=== PATIENT | male | born 1985 | race American Indian/Alaskan Native ===

== ENCOUNTER 2016-09-26 02:25 | Emergency (ER) | payer OTHER ==
[2016-09-26] MEDS ORDERED: NORCO 5/325 PO ONE (07:42)
[2016-09-26] MEDS ORDERED: PROVENTIL IH ONE (07:42)
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
--- NOTE | 2016-09-26 08:45 | XRay Report ---
ROUTINE CHEST, TWO VIEWS: HISTORY: Cough, wheezing. The trachea, heart, mediastinal contour, lung tellez and bony thorax are unremarkable. IMPRESSION: Unremarkable chest x-ray.
[2016-09-26 09:30] VITALS: BP 136/91
== END 2016-09-26 09:28 | disposition home or self-care (01) ==
LOC: ED 02:25
DX: J06.9 Acute upper respiratory infection, unspecified (principal); F17.200 Nicotine dependence, unspecified, uncomplicated; Z98.890 Other specified postprocedural states
CPT/HCPCS: 71020; 94640; 99283

== ENCOUNTER 2017-04-21 22:38 | Emergency (ER) | payer SELFPAY ==
[2017-04-22 01:13] LABS: Basophils % (Auto) 0.6 % (0.0-1.8); Eosinophils % (Auto) 4.3 % (0.0-4.3); Hematocrit 48.7 % (35.5-45.6); Hemoglobin 16.4 gm/dl (11.8-15.2); Mean Corpuscular HGB Conc 34 % (32-34); Mean Corpuscular Hemoglobin 31 pg (28-32); Mean Corpuscular Volume 93 fl (84-94); Platelet Count 264 K/mm3 (140-440); Red Blood Count 5.24 M/mm3 (3.65-5.03); White Blood Count 4.9 K/mm3 (4.5-11.0)
[2017-04-22 01:21] LABS: Alanine Aminotransferase 44 units/L (7-56); Albumin 4.4 g/dL (3.9-5); Albumin/Globulin Ratio 1.3 %; Alkaline Phosphatase 75 units/L (35-129); Anion Gap 21 mmol/L; Blood Urea Nitrogen 12 mg/dL (9-20); Carbon Dioxide 21 mmol/L (22-30); Chloride 102.1 mmol/L (98-107); Glucose 128 mg/dL (75-100); Lipase 110 units/L (13-60); Potassium 3.9 mmol/L (3.6-5.0); Sodium 140 mmol/L (137-145); Total Protein 7.7 g/dL (6.3-8.2)
--- NOTE | 2017-04-22 09:25 | Emergency Department Report ---
ED Abdominal Pain HPI - General Chief Complaint: Abdominal Pain Stated Complaint: ABD PAIN Time Seen by Provider: 04/22/17 09:30 Source: patient Mode of arrival: Ambulatory Limitations: No Limitations - History of Present Illness Initial Comments: Patient here reports that he has abdominal pain since yesterday morning after eating in some sausage. He also reports that he drinks sixpack beer everyday. Last time he drank was 2 days ago. He reports that he had nausea and vomiting since yesterday. Denies any vomiting since being in the emergency room but he said he is nauseous. He said his abdominal pain is from him vomit in and it only hurts when he vomited and pain is 7 out of 10. Denies any abdominal pain at rest. Denies any diarrhea. Denies any vomiting blood. Denies any fever or chills. He is able to drink some water but he is vomiting per patient. Denies any urinary burning frequency or urgency. Denies any back pain. Patient said that he rested and he feels a little better but he called yesterday and he needs a work note. MD Complaint: abdominal pain Onset/Timin -: days(s) Location: diffuse Radiation: none Migration to: no migration Severity: severe Severity scale (0 -10): 7 Quality: cramping Consistency: intermittent Improves With: rest Worsens With: vomiting Context: possible food poisoning Associated Symptoms: nausea, vomiting. denies: diarrhea, fever, chills, constipation, dysuria, hematemesis, hematochezia, melena, hematuria, anorexia, syncope Treatments Prior to Arrival: other (none) - Related Data Previous Rx's Medication Instructions Recorded Last Taken Type Cephalexin [Keflex] 500 mg PO BID #20 capsule 10/31/13 Unknown Rx Ibuprofen [Motrin 600 MG tab] 600 mg PO Q8H PRN #30 tablet 10/31/13 Unknown Rx ALBUTEROL Inhaler [ProAir HFA 2 puff IH QID PRN #1 inhalation 09/26/16 Unknown Rx Inhaler] Azithromycin [Zithromax] 250 mg PO QDAY #6 tablet 09/26/16 Unknown Rx Cetirizine HCl [ZyrTEC] 10 mg PO QDAY #30 capsule 09/26/16 Unknown Rx Fluticasone [Flonase] 1 spray NS QDAY #1 bottle 09/26/16 Unknown Rx Dicyclomine [Bentyl] 20 mg PO TID #12 bottle 04/22/17 Unknown Rx Promethazine [Phenergan TAB] 25 mg PO Q8HR PRN #15 tab 04/22/17 Unknown Rx Allergies Allergy/AdvReac Type Severity Reaction Status Date / Time shellfish derived Allergy Swelling Verified 10/12/13 04:01 ED Review of Systems ROS: Stated complaint: ABD PAIN Other details as noted in HPI Comment: All other systems reviewed and negative Constitutional: no symptoms reported ENT: denies: throat pain Respiratory: no symptoms reported Cardiovascular: denies: chest pain, palpitations, edema, syncope Gastrointestinal: abdominal pain, nausea, vomiting. denies: diarrhea, constipation, hematemesis, melena, hematochezia Genitourinary: denies: urgency, dysuria, frequency, hematuria, discharge, testicular pain, testicular mass Musculoskeletal: denies: back pain, joint swelling, arthralgia, myalgia Skin: denies: rash Neurological: denies: headache, weakness, numbness, paresthesias, confusion, abnormal gait, vertigo ED Past Medical Hx - Past Medical History Previous Medical History?: No - Surgical History Past Surgical History?: Yes Additional Surgical History: two cyst removed from left-facial side - Family History Family history: hypertension - Social History Smoking Status: Current Every Day Smoker Substance Use Type: Alcohol (six pack beer daily) - Medications Home Medications: Home Medications Medication Instructions Recorded Confirmed Last Taken Type Cephalexin [Keflex] 500 mg PO BID #20 capsule 10/31/13 Unknown Rx Ibuprofen [Motrin 600 MG tab] 600 mg PO Q8H PRN #30 tablet 10/31/13 Unknown Rx ALBUTEROL Inhaler [ProAir HFA 2 puff IH QID PRN #1 inhalation 09/26/16 Unknown Rx Inhaler] Azithromycin [Zithromax] 250 mg PO QDAY #6 tablet 09/26/16 Unknown Rx Cetirizine HCl [ZyrTEC] 10 mg PO QDAY #30 capsule 09/26/16 Unknown Rx Fluticasone [Flonase] 1 spray NS QDAY #1 bottle 09/26/16 Unknown Rx Dicyclomine [Bentyl] 20 mg PO TID #12 bottle 04/22/17 Unknown Rx Promethazine [Phenergan TAB] 25 mg PO Q8HR PRN #15 tab 04/22/17 Unknown Rx ED Physical Exam - General Limitations: No Limitations General appearance: alert, in no apparent distress - Head Head exam: Present: atraumatic, normocephalic, normal inspection - Eye Eye exam: Present: normal appearance, PERRL, EOMI. Absent: scleral icterus, conjunctival injection Pupils: Present: normal accommodation - ENT ENT exam: Present: normal exam, normal orophraynx, mucous membranes moist - Neck Neck exam: Present: normal inspection, full ROM. Absent: tenderness, lymphadenopathy - Respiratory Respiratory exam: Present: normal lung sounds bilaterally. Absent: respiratory distress, wheezes, rales, rhonchi, stridor, chest wall tenderness, accessory muscle use, decreased breath sounds, prolonged expiratory - Cardiovascular Cardiovascular Exam: Present: regular rate, normal rhythm, normal heart sounds - GI/Abdominal GI/Abdominal exam: Present: soft, hyperactive bowel sounds. Absent: distended, tenderness, guarding, rebound, rigid, organomegaly, mass, bruit, pulsatile mass , hernia - Extremities Exam Extremities exam: Present: normal inspection, full ROM, normal capillary refill. Absent: tenderness, pedal edema, joint swelling, calf tenderness - Back Exam Back exam: Present: normal inspection, full ROM. Absent: tenderness, CVA tenderness (R), CVA tenderness (L), muscle spasm, paraspinal tenderness, vertebral tenderness, rash noted - Neurological Exam Neurological exam: Present: alert, oriented X3, normal gait, reflexes normal. Absent: motor sensory deficit - Psychiatric Psychiatric exam: Present: normal affect, normal mood - Skin Skin exam: Present: warm, dry, intact, normal color. Absent: rash ED Course Vital Signs 04/21/17 04/22/17 23:56 04:07 Temperature 98.5 F 98.6 F Pulse Rate 86 77 Respiratory 16 18 Rate Blood Pressure 130/84 102/79 Blood Pressure 130/84 [Left] O2 Sat by Pulse 100 100 Oximetry - Reevaluation(s) Reevaluation #1: 04/22/17 10:23 Patient stable throughout ED course. He was given Zofran 4 mg ODT, Mylanta 30 mL and viscous lidocaine 2% by mouth as GI cocktail. He tolerated well and drank 3 cups of cranberry juice without any difficulties. ED Medical Decision Making - Lab Data Result diagrams: 04/22/17 00:28 04/22/17 00:28 Lab Results 04/22/17 04/22/17 04/22/17 Range/Units 00:28 00:28 Unknown WBC 4.9 (4.5-11.0) K/mm3 RBC 5.24 H (3.65-5.03) M/mm3 Hgb 16.4 H (11.8-15.2) gm/dl Hct 48.7 H (35.5-45.6) % MCV 93 (84-94) fl MCH 31 (28-32) pg MCHC 34 (32-34) % RDW 14.0 (13.2-15.2) % Plt Count 264 (140-440) K/mm3 Lymph % (Auto) 46.4 H (13.4-35.0) % [place] % (Auto) 5.6 (0.0-7.3) % Eos % (Auto) 4.3 (0.0-4.3) % Baso % (Auto) 0.6 (0.0-1.8) % Lymph # 2.3 (1.2-5.4) K/mm3 [place] # 0.3 (0.0-0.8) K/mm3 Eos # 0.2 (0.0-0.4) K/mm3 Baso # 0.0 (0.0-0.1) K/mm3 Seg Neutrophils % 43.1 (40.0-70.0) % Seg Neutrophils # 2.1 (1.8-7.7) K/mm3 Sodium 140 (137-145) mmol/L Potassium 3.9 (3.6-5.0) mmol/L Chloride 102.1 (98-107) mmol/L Carbon Dioxide 21 L (22-30) mmol/L Anion Gap 21 mmol/L BUN 12 (9-20) mg/dL Creatinine 0.8 (0.8-1.5) mg/dL Estimated GFR > 60 ml/min BUN/Creatinine Ratio 15.00 % Glucose 128 H (75-100) mg/dL Calcium 9.0 (8.4-10.2) mg/dL Total Bilirubin 0.20 (0.1-1.2) mg/dL AST 30 (5-40) units/L ALT 44 (7-56) units/L Alkaline Phosphatase 75 (35-129) units/L Total Protein 7.7 (6.3-8.2) g/dL Albumin 4.4 (3.9-5) g/dL Albumin/Globulin Ratio 1.3 % Lipase 110 H (13-60) units/L Urine Color Yellow (Yellow) Urine Turbidity Clear (Clear) Urine pH 5.0 (5.0-7.0) Ur Specific [place] 1.024 (1.003-1.030) Urine Protein <15 mg/dl (Negative) mg/dL Urine Glucose (UA) Neg (Negative) mg/dL Urine Ketones Neg (Negative) mg/dL Urine Blood Neg (Negative) Urine Nitrite Neg (Negative) Urine Bilirubin Neg (Negative) Urine Urobilinogen < 2.0 (<2.0) mg/dL Ur Leukocyte Esterase Sm (Negative) Urine WBC (Auto) 14.0 H (0.0-6.0) /HPF Urine RBC (Auto) 2.0 (0.0-6.0) /HPF Urine Mucus Few /HPF - Medical Decision Making ED course:Pt here complaining of abdominal pain from vomiting. Patient's said that he ate sausage yesterday morning and started vomiting. He has no diarrhea. Physical findings with normal except abdominal exam except patient with hyperactive bowel sounds. No other abnormality is in physical findings. Patient given viscous lidocaine 2% mixed with Mylanta 30 mL as GI cocktail which he said made him feel felt better and also received Zofran 4 mild gram ODT for nausea. Patient labs to include CBC, BMP and urinalysis is stable except his glucose is 128 which is mildly elevated and his lipase at 110 which is mildly elevated .patient drinks sixpack beer daily and he was instructed to refrain from drinking all call as this can cause him to have pancreatitis. I discussed the patient diagnosis , lab results and treatment plan and he voiced understanding. Pt able to tolerate 3 cups of cranberry juice prior to discharge. says he feels better and discharged home in stable condition. Pt Discharged home with Bentyl and Phenergan and to follow up with his primary care physician in 2-3 days and if he does not have a primary care physician to follow up at [facility] or return to the emergency room if his symptoms worsen. Discussed with him that he may need to follow up with GI specialist if his symptoms continue Critical care attestation.: If time is entered above; I have spent that time in minutes in the direct care of this critically ill patient, excluding procedure time. ED Disposition Clinical Impression: Elevated lipase, Alcohol cessation counseling Abdominal pain Qualifiers: Abdominal location: generalized Qualified Code(s): R10.84 - Generalized abdominal pain Nausea and vomiting Qualifiers: Vomiting type: unspecified Vomiting Intractability: non-intractable Qualified Code(s): R11.2 - Nausea with vomiting, unspecified Disposition: - NO SHOW-NO CHARGES Is pt being admited?: No Does the pt Need Aspirin: No Condition: Stable Instructions: Acute Nausea and Vomiting (ED), Abuse of Alcohol (ED), Abdominal Pain (ED) Additional Instructions: Please eat diet that consists of banana, rice, applesauce and toast. Please do this over the next 72 hours. Please avoid foods that is acidic and spicy Please take medication as prescribed Please increase her fluid intake to include Gatorade. Your lipase level was elevated at 110. You'll need to stop drinking all call and follow up with vp human resources for monitoring. She do not have a primary care physician he can follow up with [facility]. Please call tomorrow to schedule an appointment Take Phenergan for nausea. This medication will cause drowsiness that please do not drive or operate heavy machinery while taking this medication. Take Bentyl which will help to calm use stomach. If your symptoms worsens, please return back to the emergency room. Prescriptions: Dicyclomine [Bentyl] 20 mg PO TID #12 bottle Promethazine [Phenergan TAB] 25 mg PO Q8HR PRN #15 tab PRN Reason: Nausea Referrals: [facility] [Outside] - 2-3 Days [facility] [Provider Group] - 3-5 Days Forms: Work/School Release Form(ED)
[2017-04-22 09:36] LABS: Bilirubin,Urine NEG (Negative); Blood,Urine NEG (Negative); Ketones,Urine NEG (Negative); Leukocyte Esterase,Urine SM (Negative); Mucus,Urine FEW /HPF; Nitrite,Urine NEG (Negative); Protein,Urine <15 mg/dL mg/dL (Negative); Urobilinogen,Urine < 2.0 mg/dL (<2.0)
[2017-04-22] MEDS ORDERED: ALUM-MAG HYDROX-SIMETH 200-200-20MG/5ML ONE (09:56)
[2017-04-22] MEDS ORDERED: ZOFRAN ODT PO ONE (09:56)
[2017-04-22] MEDS ORDERED: ALUM-MAG HYDROX-SIMETH 200-200-20MG/5ML PO ONE (09:56)
[2017-04-22] MEDS ORDERED: LIDOCAINE VISCOUS 2% PO ONE (09:56)
[2017-04-22 10:31] VITALS: BP 139/86
== END 2017-04-22 10:58 | disposition home or self-care (01) ==
LOC: ED 22:38
DX: R10.84 Generalized abdominal pain (principal); R11.2 Nausea with vomiting, unspecified; R74.8 Abnormal levels of other serum enzymes; Z71.41 Alcohol abuse counseling and surveillance of alcoholic; F17.200 Nicotine dependence, unspecified, uncomplicated; Z91.013 Allergy to seafood
CPT/HCPCS: 36415; 80053; 81001; 83690; 85025; 99283; Q0162

== ENCOUNTER 2018-12-23 23:51 | Emergency (ER) | payer SELFPAY ==
[2018-12-24 00:13] VITALS: BP 139/84
[2018-12-24] MEDS ORDERED: TYLENOL PO ONE (02:54)
[2018-12-24] MEDS ORDERED: TYLENOL #3 PO ONE (04:30)
[2018-12-24] MEDS ORDERED: XYLOCAINE 1% MPF 5 mL INFILTRATI ONE (04:30)
[2018-12-24] MEDS ORDERED: BOOSTRIX IM ONE (04:33)
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
[2018-12-24] MEDS ORDERED: BENADRYL PO ONE (04:39)
[2018-12-24] MEDS ORDERED: BANOPHEN PO ONE (05:20)
== END 2018-12-24 05:35 | disposition home or self-care (01) ==
LOC: ED 23:51
DX: S01.511A Laceration without foreign body of lip, initial encounter (principal); F17.200 Nicotine dependence, unspecified, uncomplicated; Z79.899 Other long term (current) drug therapy; Z91.018 Allergy to other foods; Z91.013 Allergy to seafood; Y04.2XXA Assault by strike against or bumped into by another person, initial encounter; Y93.89 Activity, other specified; Y92.89 Other specified places as the place of occurrence of the external cause; Y99.8 Other external cause status
CPT/HCPCS: 90471; 90715; 99282

== ENCOUNTER 2020-10-04 02:41 | Emergency (ER) | payer SELFPAY ==
[2020-10-04] MEDS ORDERED: IBUPROFEN 800 MG TAB PO ONE (03:00)
--- NOTE | 2020-10-04 03:23 | Event Note ---
ED Screening Note Date of service: 10/04/20 Time: 02:50 ED Screening Note: Patient is a 35-year-old -[place] male with a history of chronic alcoholism who presents to the ED via EMS with complaint of acute onset severe right right ankle and foot pain with deformity and swelling after he jumped over the fence and fell down on the ground, twisting his right ankle and foot and fell down about 1 hour ago. Patient states that he was coming from a club and could not wake up his to open the door for him and therefore he decided to jump the fence. Patient states that he is unable to bear weight on the right leg because of severe pain. Patient admits to heavy drinking daily. Patient denies dizziness, syncope, head and neck pain, chest pain, shortness of breath, headache, head injury, nausea and vomiting or loss of consciousness. This initial assessment/diagnostic orders/clinical plan/treatment(s) is/are subject to change based on patients health status, clinical progression and re- assessment by fellow clinical providers in the ED. Further treatment and workup at subsequent clinical providers discretion. Patient/guardian urged not to elope from the ED as their condition may be serious if not clinically assessed and managed. Initial orders include: XR right ankle; XR right foot, head CT scan without contrast
[2020-10-04 03:29] VITALS: BP 106/65
--- NOTE | 2020-10-04 03:51 | XRay Report ---
RIGHT FOOT 3 VIEWS INDICATION / CLINICAL INFORMATION: Pain - Injury. COMPARISON: None available. FINDINGS: BONES/JOINT(S): There are moderately displaced right ankle fractures, better seen on contemporaneous ankle radiographs. No additional foot fracture is seen. See contemporaneous ankle radiograph report f or full details of the fractures. SOFT TISSUES: No significant abnormality. ADDITIONAL FINDINGS: None. Signer Name: Jose Musa MD Signed: 10/04/2020 3:47 AM Workstation Name: [email or web address]
--- NOTE | 2020-10-04 03:52 | XRay Report ---
RIGHT ANKLE 3 VIEWS INDICATION / CLINICAL INFORMATION: Pain - injury. COMPARISON: None available. FINDINGS: There are moderately displaced fractures of the medial and lateral malleoli with associated moderate lateral displacement of the talus beneath the tibia. There is no radiopaque foreign body or soft tiss ue gas. Signer Name: Jose Musa MD Signed: 10/04/2020 3:48 AM Workstation Name: [id number]
--- NOTE | 2020-10-04 04:11 | Emergency Department Report ---
ED General Adult HPI - General Chief complaint: Extremity Injury, Lower Stated complaint: RIGHT LEG PAIN PUI?: No Time Seen by Provider: 10/04/20 04:00 Source: patient, RN notes reviewed Mode of arrival: Wheelchair Limitations: Physical Limitation - History of Present Illness Initial comments: The patient was evaluated in the emergency department for symptoms described in the history of present illness. He/she was evaluated in the context of the global COVID-19 pandemic, which necessitated consideration that the patient darin ht be at risk for infection with the virus that causes COVID-19. Institutional protocols and algorithms that pertain to the evaluation of patients at risk for COVID-19 are in a state of rapid change based on information released by regulatory bodies including the CDC and federal and state organizations. These policies and algorithms were followed during the patient's care in the emergency department. Please note that these policies, procedures and recommendations changed on a rapid basis. The patient is a 35-year-old gentleman. The patient presents to the ER with a complaint of right ankle pain. Patient reports that he was jumping over a short fence, landed on his right ankle "the wrong way", and subsequently had sharp throbbing right-sided ankle pain. He did not hit his head or neck. He denies headache, neck pain, chest pain, abdominal pain, shortness of breath. He denies weakness and numbness. He is not homicidal or suicidal. He does admit to some recreational alcohol consumption tonight. He has no other injuries and complaints. -: Sudden Location: right, lower extremity Radiation: non-radiation Severity scale (0 -10): 7 Quality: aching Consistency: constant Improves with: rest Worsens with: movement - Related Data Previous Rx's Medication Instructions Recorded Last Taken Type Ibuprofen [Motrin 600 MG tab] 600 mg PO Q8H PRN #30 tablet 10/31/13 Unknown Rx Acetaminophen [Non-Aspirin Extra 500 mg PO Q6HR PRN #30 tablet 10/04/20 Unknown Rx Strength] Ibuprofen [Motrin] 600 mg PO Q8H PRN #30 tablet 10/04/20 Unknown Rx Morphine Sulfate [Morphine Sulfate 7.5 mg PO Q6HR PRN #10 tablet 10/04/20 Unknown Rx IR] Multivitamin with Folic Acid [Cvs 400 mcg PO QDAY #30 tablet 10/04/20 Unknown Rx One Daily Essential Tablet] Allergies Allergy/AdvReac Type Severity Reaction Status Date / Time iodine Allergy Unknown Verified 12/24/18 00:13 shellfish derived Allergy Swelling Verified 10/12/13 04:01 ED Review of Systems ROS: Stated complaint: RIGHT LEG PAIN Other details as noted in HPI Constitutional: denies: fever Eyes: denies: eye discharge ENT: denies: epistaxis Respiratory: denies: cough Cardiovascular: denies: chest pain Musculoskeletal: joint swelling, arthralgia, myalgia Neurological: denies: weakness, numbness, paresthesias Psychiatric: denies: homicidal thoughts, suicidal thoughts ED Past Medical Hx - Past Medical History Previous Medical History?: No - Surgical History Past Surgical History?: Yes Additional Surgical History: two cyst removed from left-facial side - Social History Smoking Status: Current Every Day Smoker Substance Use Type: Alcohol - Medications Home Medications: Home Medications Medication Instructions Recorded Confirmed Last Taken Type Ibuprofen [Motrin 600 MG tab] 600 mg PO Q8H PRN #30 tablet 10/31/13 Unknown Rx Acetaminophen [Non-Aspirin Extra 500 mg PO Q6HR PRN #30 tablet 10/04/20 Unknown Rx Strength] Ibuprofen [Motrin] 600 mg PO Q8H PRN #30 tablet 10/04/20 Unknown Rx Morphine Sulfate [Morphine Sulfate 7.5 mg PO Q6HR PRN #10 tablet 10/04/20 Unknown Rx IR] Multivitamin with Folic Acid [Cvs 400 mcg PO QDAY #30 tablet 10/04/20 Unknown Rx One Daily Essential Tablet] ED Physical Exam - General Limitations: Physical Limitation General appearance: alert, appears intoxicated, anxious - Head Head exam: Present: atraumatic, normocephalic - Eye Eye exam: Present: normal appearance, EOMI. Absent: nystagmus - ENT ENT exam: Present: normal exam, normal orophraynx, mucous membranes moist, normal external ear exam - Neck Neck exam: Present: normal inspection, full ROM. Absent: tenderness, meningismus - Respiratory Respiratory exam: Present: normal lung sounds bilaterally. Absent: respiratory distress, wheezes, rales, rhonchi, stridor, decreased breath sounds - Cardiovascular Cardiovascular Exam: Present: regular rate, normal rhythm, normal heart sounds. Absent: bradycardia, tachycardia, irregular rhythm, systolic murmur, diastolic murmur, rubs, gallop - GI/Abdominal GI/Abdominal exam: Present: soft, normal bowel sounds. Absent: distended, tenderness, guarding, rebound, rigid, pulsatile mass - Rectal Rectal exam: Present: deferred - Extremities Exam Extremities exam: Present: normal inspection, tenderness (There is right medial malleolus, right lateral malleolus tenderness. There is no foot tenderness.), normal capillary refill, other (2+ pulses noted in the bilateral upper and lower extremities. The pelvis is stable. The bilateral upper extremities and left lower extremity are nontender with full active and passive range of motion in the bilateral upper and left lower extremities. Range of motion intact in the right knee and r). Absent: pedal edema, calf tenderness - Back Exam Back exam: Present: normal inspection. Absent: tenderness, CVA tenderness (R), CVA tenderness (L), paraspinal tenderness, vertebral tenderness - Neurological Exam Neurological exam: Present: alert, other (No facial droop. Tongue midline. Extraocular movements intact bilaterally. Facial sensation intact to light touch in V1, V2, V3 distribution bilaterally. 5 and a 5 strength in 4 extremities. Sensation intact to light touch in 4 extremities.) - Psychiatric Psychiatric exam: Absent: homicidal ideation, suicidal ideation - Skin Skin exam: Present: warm, dry, intact, normal color. Absent: rash ED Course Vital Signs 10/04/20 02:53 Temperature 99.9 F H Pulse Rate 99 H Respiratory 18 Rate Blood Pressure 106/65 O2 Sat by Pulse 98 Oximetry - Reevaluation(s) Reevaluation #1: 10/04/20 04:20 Differential diagnosis, including but not limited to: Ankle sprain, ankle strain, ankle fracture, alcohol intoxication Assessment and plan: 35-year-old gentleman who is clinically intoxicated, but pleasant and cooperative, with no midline cervical spine pain or tenderness, denies falling and hitting his head, no evidence of head trauma to the head and neck on examination, with obvious right-sided medial and lateral malleolus fractures, without neurovascular deficits. CT scan of the brain was ordered by the physician development assistant in triage, and is negative for acute findings. Patient states he did not fall or hit his head or neck, he has no midline cervical spine pain or tenderness, he is moving 4 extremities, and he is examinable. Given that patient states he did not fall and hit his head or neck, and there is no evidence of blunt or penetrating trauma to the head and neck on my examination, we will not obtain CT scan of the cervical spine. He appears to have isolated fracture of his right lateral and medial malleolus We will obtain x-ray of the pelvis, and right leg/knee. Omar splint ordered. Pain medication ordered. Nonweightbearing, close outpatient orthopedics follow-up, crutch training, also, patient will need to have a sober adult come by and pick him up. Reevaluation #2: 10/04/20 05:08 Omar splint applied. Patient in no acute distress. X-ray of the pelvis, and right knee negative for significant findings. Patient will have a sober adult come by and pick him up. ED Medical Decision Making - Lab Data Vital Signs 10/04/20 02:53 Temperature 99.9 F H Pulse Rate 99 H Respiratory 18 Rate Blood Pressure 106/65 O2 Sat by Pulse 98 Oximetry - Radiology Data Radiology results: report reviewed, image reviewed RIGHT ANKLE 3 VIEWS INDICATION / CLINICAL INFORMATION: Pain - injury. COMPARISON: None available. FINDINGS: There are moderately displaced fractures of the medial and lateral malleoli with associated moderate lateral displacement of the talus beneath the tibia. There is no radiopaque foreign body or soft tissue gas. Signer Name: Jose Musa MD Signed: 10/04/2020 2:48 AM Workstation Name: [id number] RIGHT FOOT 3 VIEWS INDICATION / CLINICAL INFORMATION: Pain - Injury. COMPARISON: None available. FINDINGS: BONES/JOINT(S): There are moderately displaced right ankle fractures, better seen on contemporaneous ankle radiographs. No additional foot fracture is seen. See contemporaneous ankle radiograph report for full details of the fractures. SOFT TISSUES: No significant abnormality. ADDITIONAL FINDINGS: None. Signer Name: Jose Musa MD Signed: 10/04/2020 2:47 AM Workstation Name: [email or web address] scan of the brain is negative for acute finding Critical care attestation.: If time is entered above; I have spent that time in minutes in the direct care of this critically ill patient, excluding procedure time. ED Disposition Clinical Impression: Alcohol intoxication Qualifiers: Complication of substance-induced condition: uncomplicated Qualified Code(s): F10.920 - Alcohol use, unspecified with intoxication, uncomplicated Fall Qualifiers: Encounter type: initial encounter Qualified Code(s): W19.XXXA - Unspecified fall, initial encounter Closed fracture of right distal fibula Qualifiers: Encounter type: initial encounter Fracture morphology: unspecified fracture morphology Qualified Code(s): S82.831A - Other fracture of upper and lower end of right fibula, initial encounter for closed fracture Closed fracture of right distal tibia Qualifiers: Encounter type: initial encounter Fracture morphology: unspecified fracture morphology Qualified Code(s): S82.301A - Unspecified fracture of lower end of right tibia, initial encounter for closed fracture Disposition: DC-01 TO HOME OR SELFCARE Is pt being admited?: No Does the pt Need Aspirin: No Condition: Good Instructions: Binge-Drinking Information, Adult, Ankle Fracture, Crutch Use, Adult Additional Instructions: Use the crutches as directed, patient should remain nonweightbearing on the right lower extremity, until cleared to place weight on the extremity by an orthopedic physician. Recommend follow-up with an orthopedic physician, such as Dr. Dia, or any orthopedist at [facility], within the next 3 to 5 days. Rest, avoid heavy lifting and strenuous physical activities, alternate ice packs and heat packs as needed for joint pain. Take the pain medications as needed and directed, and multivitamin on a daily basis. Avoid consumption of alcohol, tobacco, marijuana and smoke products. Please return to the emergency room right away with new pain, worsened pain, migration of pain, projectile vomiting, change in mental status, confusion, inability to tolerate liquid feeds, numbness, weakness, change in mental status, or any new, worsened or different symptoms not present on the initial emergency room evaluation. Patient may participate in nonweightbearing/light duty at work related/school related activities. Prescriptions: Multivitamin with Folic Acid [Cvs One Daily Essential Tablet] 400 mcg PO QDAY #30 tablet Morphine Sulfate [Morphine Sulfate IR] 7.5 mg PO Q6HR PRN #10 tablet PRN Reason: Pain , Severe (7-10) Ibuprofen [Motrin] 600 mg PO Q8H PRN #30 tablet PRN Reason: Pain Acetaminophen [Non-Aspirin Extra Strength] 500 mg PO Q6HR PRN #30 tablet PRN Reason: Pain , Severe (7-10) Referrals: STEFF DIA MD [Staff Physician] - 3-5 Days [facility] [Provider Group] - 3-5 Days Forms: Work/School Release Form
[2020-10-04] MEDS ORDERED: MORPHINE 4 MG/1 ML INJ IV ONE (04:14)
--- NOTE | 2020-10-04 04:23 | Cat Scan Report ---
CT head/brain wo con INDICATION: fall - intoxicated. TECHNIQUE: Routine CT head without contrast. All CT scans at this location are performed using CT dose reduction for ALARA by means of automated exposure control. COMPARISON: None. FINDINGS: BRAIN / INTRACRANIAL CONTENTS: No acute hemorrhage, brain edema, mass effect, or hydrocephalus. Jessica l willett-white differentiation. No chronic infarct or focal atrophy. Normal brain volume and ventricula r/sulcal size for age. CALVARIUM/SKULL BASE/CRANIOCERVICAL JUNCTION: No evidence of fracture. ORBITS: No significant abnormality of visualized orbits. SINUSES / MASTOIDS: No significant abnormality of visualized sinuses and mastoid air cells. ADDITIONAL FINDINGS: None. IMPRESSION: 1. No acute post-traumatic intracranial abnormality. Signer Name: Jose Musa MD Signed: 10/04/2020 4:19 AM Workstation Name: [id number]
--- NOTE | 2020-10-04 05:07 | XRay Report ---
PELVIS ONE VIEW INDICATION / CLINICAL INFORMATION: fall, leg pain. COMPARISON: None available. FINDINGS: BONES/JOINT(S): No acute fracture or subluxation. Mild DJD in both hip joints. SOFT TISSUES: No significant abnormality. ADDITIONAL FINDINGS: None. Signer Name: Jose Musa MD Signed: 10/04/2020 5:02 AM Workstation Name: [email or web address]
--- NOTE | 2020-10-04 05:07 | XRay Report ---
RIGHT KNEE 2 VIEWS INDICATION / CLINICAL INFORMATION: right leg pain, fracture. COMPARISON: None available. FINDINGS: BONES/JOINT(S): No acute fracture or subluxation. No significant degenerative changes. SOFT TISSUES: No significant abnormality. ADDITIONAL FINDINGS: None. Signer Name: Jose Musa MD Signed: 10/04/2020 5:03 AM Workstation Name: [email or web address]
== END 2020-10-04 05:43 | disposition home or self-care (01) ==
LOC: ED 02:41
DX: S82.831A Other fracture of upper and lower end of right fibula, initial encounter for closed fracture (principal); S82.301A Unspecified fracture of lower end of right tibia, initial encounter for closed fracture; F10.920 Alcohol use, unspecified with intoxication, uncomplicated; F17.200 Nicotine dependence, unspecified, uncomplicated; Z79.1 Long term (current) use of non-steroidal anti-inflammatories (NSAID); Z79.899 Other long term (current) drug therapy; Z91.013 Allergy to seafood; Z88.8 Allergy status to other drugs, medicaments and biological substances; Y93.89 Activity, other specified; Y92.89 Other specified places as the place of occurrence of the external cause; Y99.8 Other external cause status
CPT/HCPCS: 29515; 70450; 72170; 73560; 73610; 73630; 96374; 99284; J2270

== ENCOUNTER 2020-10-17 06:09 | Emergency (ER) | payer SELFPAY ==
[2020-10-17 07:21] VITALS: BP 141/78
--- NOTE | 2020-10-17 08:15 | Emergency Department Report ---
ED Lower Extremity HPI - General Chief Complaint: Extremity Injury, Lower Stated Complaint: RT ANKLE PAIN Time Seen by Provider: 10/17/20 07:31 Source: patient Mode of arrival: Ambulatory Limitations: Physical Limitation - History of Present Illness Initial Comments: This is a 35-year-old male nontoxic, well nourished in appearance, no acute signs of distress presents to the ED with c/o of right ankle fracture times several days. Patient was seen in this emergency room for right ankle fracture and has been placed on [place] splint which he stated he removed it and went to follow-up in [place] ER several days after which the placed a Omar splint again which he removed today and came to the ER for further evaluation. Patient denies following up with a orthopedic doctor. Patient denies any acute injuries or trauma. Patient denies any numbness, tingling, fever, chills, nausea, vomiting, chest pain, shortness of breath, headache, stiff neck. Patient denies any joint swelling or joint redness. Patient denies decreased range of motion. Patient stated has decreased gait due to pain. Patient denies any allergies or significant past medical history. MD Complaint: ankle injury -: days(s) Injury: Ankle: Right Context: fall Associated Symptoms: swelling, able to partially bear weight. denies: snap/pop sensation, numbness, tingling, unable to bear weight - Related Data Previous Rx's Medication Instructions Recorded Last Taken Type Ibuprofen [Motrin 600 MG tab] 600 mg PO Q8H PRN #30 tablet 10/31/13 Unknown Rx Acetaminophen [Non-Aspirin Extra 500 mg PO Q6HR PRN #30 tablet 10/04/20 Unknown Rx Strength] Ibuprofen [Motrin] 600 mg PO Q8H PRN #30 tablet 10/04/20 Unknown Rx Morphine Sulfate [Morphine Sulfate 7.5 mg PO Q6HR PRN #10 tablet 10/04/20 Un known Rx IR] Multivitamin with Folic Acid [Cvs 400 mcg PO QDAY #30 tablet 10/04/20 Unknown Rx One Daily Essential Tablet] Allergies Allergy/AdvReac Type Severity Reaction Status Date / Time iodine Allergy Unknown Verified 12/24/18 00:13 shellfish derived Allergy Swelling Verified 10/12/13 04:01 ED Review of Systems ROS: Stated complaint: RT ANKLE PAIN Other details as noted in HPI Comment: All other systems reviewed and negative Constitutional: denies: chills, fever Eyes: denies: eye pain, eye discharge, vision change ENT: denies: ear pain, throat pain Respiratory: denies: cough, shortness of breath, wheezing Cardiovascular: denies: chest pain, palpitations Endocrine: no symptoms reported Gastrointestinal: denies: abdominal pain, nausea, diarrhea Genitourinary: denies: urgency, dysuria Musculoskeletal: denies: back pain, joint swelling, arthralgia Skin: denies: rash, lesions Neurological: denies: headache, weakness, paresthesias Psychiatric: denies: anxiety, depression Hematological/Lymphatic: denies: easy bleeding, easy bruising ED Past Medical Hx - Past Medical History Previous Medical History?: Yes Additional medical history: facial cyst, right ankle/leg injury - Surgical History Additional Surgical History: two cyst removed from left-facial side - Social History Smoking Status: Current Every Day Smoker Substance Use Type: Alcohol - Medications Home Medications: Home Medications Medication Instructions Recorded Confirmed Last Taken Type Ibuprofen [Motrin 600 MG tab] 600 mg PO Q8H PRN #30 tablet 10/31/13 Unknown Rx Acetaminophen [Non-Aspirin Extra 500 mg PO Q6HR PRN #30 tablet 10/04/20 Unknown Rx Strength] Ibuprofen [Motrin] 600 mg PO Q8H PRN #30 tablet 10/04/20 Unknown Rx Morphine Sulfate [Morphine Sulfate 7.5 mg PO Q6HR PRN #10 tablet 10/04/20 Unknown Rx IR] Multivitamin with Folic Acid [Cvs 400 mcg PO QDAY #30 tablet 10/04/20 Unknown Rx One Daily Essential Tablet] ED Physical Exam - General Limitations: Physical Limitation General appearance: alert, in no apparent distress - Head Head exam: Present: atraumatic, normocephalic - Eye Eye exam: Present: normal appearance - Neck Neck exam: Present: normal inspection, full ROM - Respiratory Respiratory exam: Absent: respiratory distress - Cardiovascular Cardiovascular Exam: Present: regular rate - Extremities Exam Extremities exam: Present: full ROM, tenderness, normal capillary refill. Absent: pedal edema, joint swelling, calf tenderness - Expanded Lower Extremity Exam Right Hip exam: Present: normal inspection, full ROM. Absent: tenderness, swelling Upper Leg exam: Present: normal inspection, full ROM. Absent: tenderness, swelling Knee exam: Present: normal inspection, full ROM. Absent: tenderness, swelling Lower Leg exam: Present: normal inspection, full ROM. Absent: tenderness, swelling, abrasion, laceration, ecchymosis, deformity, crepidus, dislocation, erythema, palpable cord, Kenzie's sign Ankle exam: Present: full ROM, tenderness, swelling. Absent: abrasion, laceration, ecchymosis, deformity, crepidus, dislocation, erythema, anterior draw sign Foot/Toe exam: Present: normal inspection, full ROM. Absent: tenderness, swelling, abrasion, laceration, ecchymosis, deformity, crepidus, dislocation, erythema, amputation, puncture wound, foreign body, calcaneal tenderness, tenderness at base of 5th metatarsal, nail avulsion, subungual hematoma Neuro vascular tendon exam: Present: no vascular compromise - Back Exam Back exam: Present: full ROM - Neurological Exam Neurological exam: Present: alert, oriented X3 - Psychiatric Psychiatric exam: Present: normal affect, normal mood - Skin Skin exam: Present: warm, dry, intact, normal color. Absent: rash ED Course Vital Signs 10/17/20 10/17/20 07:19 07:21 Temperature 99 F 99 F Pulse Rate 101 H 101 H Respiratory 20 20 Rate Blood Pressure 141/78 Blood Pressure 141/78 [Right] O2 Sat by Pulse 98 98 Oximetry - Reevaluation(s) Reevaluation #1: 10/17/20 08:24 Patient is speaking in full sentences with no signs of distress noted. ED Lower Extremity MDM - Medical Decision Making Patient is stable and was examined by me. Vital signs are stable. A Omar splint has been reapplied. Patient does have crutches. Post splint assessment: neurovasular intact; normal cap refill <2 second; normal sensation; denies decreaed sensation; normal ROM of digits. Patient was instructed that he must follow-up with a orthopedic doctor for further evaluation and treatment. At time of discharge, the patient does not seem toxic or ill in appearance. No acute signs of distress noted. Patient agrees to discharge treatment plan of care. No further questions noted by the patient. Critical care attestation.: If time is entered above; I have spent that time in minutes in the direct care of this critically ill patient, excluding procedure time. ED Disposition Clinical Impression: Examination, follow up for fracture Disposition: DC- TO HOME OR SELFCARE Is pt being admited?: No Does the pt Need Aspirin: No Condition: Stable Instructions: Cast or Splint Care, Adult, [id number], Ankle Fracture Additional Instructions: Follow-up with a orthopedic doctor in 3-5 days or if symptoms worsen and continue return to emergency room as soon as possible. No physical activity or weight bearing to right lower extremity until cleared by orthopedic doctor Referrals: PRIMARY MD GARTH [Primary Care Provider] - 3-5 Days STEFF PHILLIPS MD [Staff Physician] - 3-5 Days Time of Disposition: 08:27
== END 2020-10-17 08:53 | disposition home or self-care (01) ==
LOC: ED 06:09
DX: S82.891A Other fracture of right lower leg, initial encounter for closed fracture (principal); Z09 Encounter for follow-up examination after completed treatment for conditions other than malignant neoplasm; F17.200 Nicotine dependence, unspecified, uncomplicated; Z98.890 Other specified postprocedural states; Z79.899 Other long term (current) drug therapy; Z91.013 Allergy to seafood; Z88.8 Allergy status to other drugs, medicaments and biological substances; X58.XXXA Exposure to other specified factors, initial encounter; Y93.89 Activity, other specified; Y92.89 Other specified places as the place of occurrence of the external cause; Y99.8 Other external cause status
CPT/HCPCS: 99282